=== PATIENT | female | born 1990 | race Caucasian/White ===

== ENCOUNTER 2018-09-04 18:00 | Emergency (ER) | payer MEDICAID, OTHER ==
[~2018-09-04] VITALS: Ht 165.1 cm; Wt 95.5 kg
[~2018-09-04 18:00] MED LIST: CARI350T PO; CLIN150C8 PO; GUAI600T45 PO; HYDR-4383 PO; NITR100C11 PO; ONDA4TAB6 PO; POTA10TA15 PO; SACC250C PO
[2018-09-04 18:10] VITALS: BP 131/87
[2018-09-04] MEDS ORDERED: prednisone 10mg tablet PO SCH (19:50)
[2018-09-04] MEDS ORDERED: predniSONE 20 mg tablet PO ONE (19:50)
[2018-09-04] MEDS ORDERED: PRED20TA PO (19:57)
== END 2018-09-04 20:06 | disposition home or self-care (01) ==
LOC: ER 18:01
DX: T78.40XA Allergy, unspecified, initial encounter (principal); L50.9 Urticaria, unspecified; R06.00 Dyspnea, unspecified; G89.29 Other chronic pain; Z86.14 Personal history of Methicillin resistant Staphylococcus aureus infection; Z98.51 Tubal ligation status; Z88.0 Allergy status to penicillin; Z88.2 Allergy status to sulfonamides; Z88.8 Allergy status to other drugs, medicaments and biological substances; Z88.5 Allergy status to narcotic agent; Z79.899 Other long term (current) drug therapy; X58.XXXA Exposure to other specified factors, initial encounter
CPT/HCPCS: 99283; J7512

== ENCOUNTER 2018-12-27 12:15 | Emergency (ER) | payer OTHER, MEDICAID ==
[~2018-12-27] VITALS: Ht 165.1 cm; Wt 86.4 kg
[2018-12-27 12:21] VITALS: BP 134/85
[2018-12-27] MEDS ORDERED: ketorolac trometh inj. 60 MG/2 ML VIAL IM ONE (12:50)
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
== END 2018-12-27 14:38 | disposition home or self-care (01) ==
LOC: ER 12:15
DX: S80.212A Abrasion, left knee, initial encounter (principal); S80.211A Abrasion, right knee, initial encounter; M25.512 Pain in left shoulder; M54.2 Cervicalgia; F32.9 Major depressive disorder, single episode, unspecified; G89.29 Other chronic pain; Z88.0 Allergy status to penicillin; Z88.5 Allergy status to narcotic agent; Z79.2 Long term (current) use of antibiotics; Z79.899 Other long term (current) drug therapy; Z86.14 Personal history of Methicillin resistant Staphylococcus aureus infection; Z98.61 Coronary angioplasty status; X58.XXXA Exposure to other specified factors, initial encounter; Y93.89 Activity, other specified; Y92.89 Other specified places as the place of occurrence of the external cause; Y99.8 Other external cause status
CPT/HCPCS: 72125; 96372; 99284; J1885

== ENCOUNTER 2019-01-02 01:55 | Emergency (ER) | payer OTHER, MEDICAID ==
[~2019-01-02] VITALS: Ht 165.1 cm; Wt 84.8 kg
[2019-01-02] MEDS ORDERED: ondansetron/PF 4mg/2ml inj IV ONE (02:05)
[2019-01-02 02:31] LABS: CLARITY,URINE CLEAR (Clear); COLOR,URINE YELLOW (Yellow); GLUCOSE, URINE NEGATIVE (Neg); KETONES,URINE NEGATIVE (Neg); LEUKOCYTE ESTERASE ,URINE NEGATIVE (Neg); NITRITES, URINE NEGATIVE (Neg); OCCULT BLOOD,URINE NEGATIVE (Neg); PH,URINE 6.5 (4.8-8.0); PROTEIN,URINE NEGATIVE (Neg)
[2019-01-02 02:32] LABS: URINE HCG NEGATIVE (NEG)
[2019-01-02 02:37] LABS: UA COLLECTION TYPE CLN CATCH MIDSTREAM
[2019-01-02 02:40] LABS: BASOPHILS # (AUTO) 0.1 X10'3 (0-0.2); BASOPHILS % (AUTO) 0.8 % (0-1); EOSINOPHILS # (AUTO) 0.3 X10'3 (0-0.9); EOSINOPHILS % (AUTO) 2.7 % (0-6); HEMATOCRIT 38.3 % (35.0-45.0); HEMOGLOBIN 13.1 g/dl (12.0-16.0); LYMPHOCYTES # (AUTO) 2.6 X10'3 (1.1-4.8); MEAN CORPUSCULAR HEMOGLOBIN 29.1 PG (27.0-31.0); MEAN CORPUSCULAR HGB CONC 34.3 g/dL (33.0-36.5); MEAN CORPUSCULAR VOLUME 84.9 FL (78-98); MEAN PLATELET VOLUME 7.9 FL (7.4-10.4); MONOCYTES # (AUTO) 0.6 X10'3 (0-0.9); MONOCYTES % (AUTO) 6.4 % (2-12); NEUTROPHILS # (AUTO) 6.2 X10'3 (1.8-7.7); NEUTROPHILS % (AUTO) 63.1 % (42-75); PLATELET COUNT 320 X10'3 (140-440); RED BLOOD COUNT 4.51 X10'6 (4.20-5.60); RED CELL DISTRIBUTION WIDTH 12.6 % (11.5-14.5); WHITE BLOOD COUNT 9.8 X10'3 (4.5-11.0)
[2019-01-02 02:53] LABS: ALANINE AMINOTRANSFERASE 24 U/L (12-78); ALBUMIN 3.9 G/DL (3.4-5.0); ALKALINE PHOSPHATASE 20 IU/L (46-116); ANION GAP 12 (8-16); ASPARTATE AMINO TRANSFERASE 13 U/L (10-37); BILIRUBIN,TOTAL 0.2 MG/DL (0.1-1.0); BLOOD UREA NITROGEN 15 MG/DL (7-18); BUN/CREATININE RATIO 16.3 (6.6-38.0); CALCIUM 9.1 MG/DL (8.5-10.1); CHLORIDE 106 MMOL/L (99-107); CREATININE 0.92 MG/DL (0.40-0.90); GLUCOSE 114 MG/DL (70-104); LIPASE 253 U/L (73-393); POTASSIUM 3.6 MMOL/L (3.5-5.1); SODIUM 141 MMOL/L (135-145); TOTAL CARBON DIOXIDE 22.6 MMOL/L (24-32); TOTAL PROTEIN 7.7 G/DL (6.4-8.2); eGFR 72 ML/MIN
[2019-01-02] MEDS ORDERED: normal saline 1000ml 1,000 ML IV ONE (02:55)
[2019-01-02 04:06] VITALS: BP 144/78
== END 2019-01-02 04:11 | disposition home or self-care (01) ==
LOC: ER 01:56
DX: F07.81 Postconcussional syndrome (principal); M25.512 Pain in left shoulder; M25.561 Pain in right knee; G89.29 Other chronic pain; F32.9 Major depressive disorder, single episode, unspecified; Z86.14 Personal history of Methicillin resistant Staphylococcus aureus infection; Z98.51 Tubal ligation status; Z88.0 Allergy status to penicillin; Z88.2 Allergy status to sulfonamides; Z88.6 Allergy status to analgesic agent; Z88.1 Allergy status to other antibiotic agents; Z88.5 Allergy status to narcotic agent; Z79.2 Long term (current) use of antibiotics; Z79.899 Other long term (current) drug therapy
CPT/HCPCS: 36415; 70450; 73030; 80053; 81003; 81025; 83690; 85025; 96361; 96374; 99284; J2405; J7030

== ENCOUNTER 2019-04-05 15:53 | Emergency (ER) | payer OTHER, MEDICAID ==
[~2019-04-05] VITALS: Ht 165.1 cm; Wt 82.4 kg
[2019-04-05 16:31] LABS: BASOPHILS # (AUTO) 0.1 X10'3 (0-0.2); BASOPHILS % (AUTO) 0.5 % (0-1); EOSINOPHILS % (AUTO) 0.1 % (0-6); HEMATOCRIT 36.2 % (35.0-45.0); HEMOGLOBIN 12.2 g/dl (12.0-16.0); LYMPHOCYTES # (AUTO) 4.4 X10'3 (1.1-4.8); LYMPHOCYTES % (AUTO) 23.3 % (21-51); MEAN CORPUSCULAR HEMOGLOBIN 29.1 PG (27.0-31.0); MEAN CORPUSCULAR HGB CONC 33.6 g/dL (33.0-36.5); MEAN CORPUSCULAR VOLUME 86.8 FL (78-98); MEAN PLATELET VOLUME 7.4 FL (7.4-10.4); MONOCYTES # (AUTO) 1.5 X10'3 (0-0.9); MONOCYTES % (AUTO) 7.7 % (2-12); NEUTROPHILS % (AUTO) 68.4 % (42-75); PLATELET COUNT 325 X10'3 (140-440); RED BLOOD COUNT 4.17 X10'6 (4.20-5.60)
[2019-04-05 16:46] LABS: ALANINE AMINOTRANSFERASE 19 U/L (12-78); ALBUMIN 3.9 G/DL (3.4-5.0); ALBUMIN/GLOBULIN RATIO 0.9 (1.1-1.5); ALKALINE PHOSPHATASE 24 IU/L (46-116); ANION GAP 11 (8-16); ASPARTATE AMINO TRANSFERASE 8 U/L (10-37); BILIRUBIN,TOTAL 0.3 MG/DL (0.1-1.0); BLOOD UREA NITROGEN 11 MG/DL (7-18); BUN/CREATININE RATIO 13.4 (6.6-38.0); CALCIUM 9.4 MG/DL (8.5-10.1); CHLORIDE 106 MMOL/L (99-107); CREATININE 0.82 MG/DL (0.40-0.90); GLUCOSE 104 MG/DL (70-104); POTASSIUM 3.4 MMOL/L (3.5-5.1); SODIUM 140 MMOL/L (135-145); TOTAL CARBON DIOXIDE 22.9 MMOL/L (24-32); TOTAL PROTEIN 8.1 G/DL (6.4-8.2); eGFR 82 ML/MIN
[2019-04-05] MEDS ORDERED: normal saline 1000ML IV soln IV ONE (17:35)
[2019-04-05] MEDS ORDERED: CefTRIAXone 2gm/D5W 50ml 50 ML IV ONE (17:35)
[2019-04-05] MEDS ORDERED: vancomycin/NS 1 GM ADD-VANTAGE 250 ML IV ONE (17:55)
[2019-04-05] MEDS ORDERED: dexamethasone sod phosphate 10mg/ml inj IV STA (18:38)
[2019-04-05] MEDS ORDERED: fentaNYL/PF 50MCG/1 ML 2ML syringe IV ONE (18:40)
[2019-04-05] MEDS ORDERED: diazepam inj 5 MG/ML inj. IV ONE (19:45)
[2019-04-05] MEDS ORDERED: OXYC-145 PO (20:04)
[2019-04-05] MEDS ORDERED: ketorolac trometh. 30mg/ml inj. IV ONE (20:10)
[2019-04-05 22:08] VITALS: BP 128/82
== END 2019-04-05 22:08 | disposition home or self-care (01) ==
LOC: ER 15:53
DX: G89.18 Other acute postprocedural pain (principal); R42 Dizziness and giddiness; M54.2 Cervicalgia; R51 Headache; R50.9 Fever, unspecified; H53.149 Visual discomfort, unspecified; G89.29 Other chronic pain; F32.9 Major depressive disorder, single episode, unspecified; Z88.0 Allergy status to penicillin; Z88.2 Allergy status to sulfonamides; Z88.6 Allergy status to analgesic agent; Z98.890 Other specified postprocedural states; Z86.14 Personal history of Methicillin resistant Staphylococcus aureus infection; Z98.51 Tubal ligation status
CPT/HCPCS: 36415; 70450; 80053; 83605; 84145; 85025; 87040; 96365; 96367; 96375; 99285; J0696; J1100; J1885; J3010; J3360; J3370; J7030

== ENCOUNTER 2019-04-17 13:24 | Emergency (ER) | payer OTHER, MEDICAID ==
[~2019-04-17] VITALS: Ht 165.1 cm; Wt 81.0 kg
[~2019-04-17 13:24] MED LIST changes: +OXYC-145 PO
[2019-04-17 13:43] VITALS: BP 127/77
[2019-04-17] MEDS ORDERED: HYDR-4353 PO (14:24)
[2019-04-17] MEDS ORDERED: OXYC-145 PO (14:27)
[2019-04-17] MEDS ORDERED: oxyCODONE/APAP 5-325mg tablet PO ONE (14:30)
[2019-04-17 14:44] LABS: BASOPHILS # (AUTO) 0.1 X10'3 (0-0.2); BASOPHILS % (AUTO) 0.6 % (0-1); EOSINOPHILS # (AUTO) 0.2 X10'3 (0-0.9); EOSINOPHILS % (AUTO) 1.6 % (0-6); HEMATOCRIT 36.2 % (35.0-45.0); HEMOGLOBIN 12.6 g/dl (12.0-16.0); LYMPHOCYTES # (AUTO) 2.3 X10'3 (1.1-4.8); LYMPHOCYTES % (AUTO) 22.1 % (21-51); MEAN CORPUSCULAR HEMOGLOBIN 29.9 PG (27.0-31.0); MEAN CORPUSCULAR HGB CONC 34.7 g/dL (33.0-36.5); MEAN CORPUSCULAR VOLUME 86.1 FL (78-98); MEAN PLATELET VOLUME 6.6 FL (7.4-10.4); MONOCYTES # (AUTO) 0.7 X10'3 (0-0.9); MONOCYTES % (AUTO) 6.6 % (2-12); NEUTROPHILS # (AUTO) 7.2 X10'3 (1.8-7.7); NEUTROPHILS % (AUTO) 69.1 % (42-75); PLATELET COUNT 354 X10'3 (140-440); WHITE BLOOD COUNT 10.5 X10'3 (4.5-11.0)
[2019-04-17 14:55] LABS: ALBUMIN 3.5 G/DL (3.4-5.0); ANION GAP 9 (8-16); BLOOD UREA NITROGEN 11 MG/DL (7-18); BUN/CREATININE RATIO 13.4 (6.6-38.0); CALCIUM 9.2 MG/DL (8.5-10.1); CHLORIDE 104 MMOL/L (99-107); CREATININE 0.82 MG/DL (0.40-0.90); GLUCOSE 101 MG/DL (70-104); POTASSIUM 3.7 MMOL/L (3.5-5.1); SODIUM 138 MMOL/L (135-145); TOTAL CARBON DIOXIDE 24.6 MMOL/L (24-32); eGFR 82 ML/MIN
== END 2019-04-17 15:12 | disposition home or self-care (01) ==
LOC: ER 13:25
DX: H65.92 Unspecified nonsuppurative otitis media, left ear (principal); G89.29 Other chronic pain; F32.9 Major depressive disorder, single episode, unspecified; Z98.890 Other specified postprocedural states; Z88.5 Allergy status to narcotic agent; Z88.0 Allergy status to penicillin; Z88.2 Allergy status to sulfonamides; Z79.2 Long term (current) use of antibiotics; Z79.899 Other long term (current) drug therapy; Z88.1 Allergy status to other antibiotic agents
CPT/HCPCS: 36415; 80048; 85025; 99284

== ENCOUNTER 2019-07-03 14:22 | Emergency (ER) | payer OTHER, MEDICAID ==
[~2019-07-03] VITALS: Ht 165.1 cm; Wt 86.4 kg
[~2019-07-03 14:22] MED LIST changes: -HYDR-4383 PO
[2019-07-03 14:31] VITALS: BP 121/88
[2019-07-03] MEDS ORDERED: DOXY100C2 PO (15:35)
== END 2019-07-03 15:54 | disposition home or self-care (01) ==
LOC: ER 14:22
DX: L73.2 Hidradenitis suppurativa (principal); G89.29 Other chronic pain; F32.9 Major depressive disorder, single episode, unspecified; Z86.14 Personal history of Methicillin resistant Staphylococcus aureus infection; Z88.0 Allergy status to penicillin; Z88.2 Allergy status to sulfonamides; Z88.6 Allergy status to analgesic agent; Z88.5 Allergy status to narcotic agent; Z79.2 Long term (current) use of antibiotics; Z79.899 Other long term (current) drug therapy
CPT/HCPCS: 99284

== ENCOUNTER 2019-11-05 08:54 | Emergency (ER) | payer OTHER, MEDICAID ==
[~2019-11-05] VITALS: Ht 165.1 cm; Wt 86.4 kg
[2019-11-05] MEDS ORDERED: LIDOcaine 1% W/epiNEPHrine 1:200,000 10ml vial IJ ONE (09:20)
[2019-11-05] MEDS ORDERED: DOXY-1 PO (09:54)
[2019-11-05 10:02] VITALS: BP 116/75
== END 2019-11-05 10:07 | disposition home or self-care (01) ==
LOC: ER 08:55
DX: L02.31 Cutaneous abscess of buttock (principal); G89.29 Other chronic pain; F32.9 Major depressive disorder, single episode, unspecified; F12.90 Cannabis use, unspecified, uncomplicated; Z86.14 Personal history of Methicillin resistant Staphylococcus aureus infection; Z98.51 Tubal ligation status; Z88.0 Allergy status to penicillin; Z88.2 Allergy status to sulfonamides; Z88.5 Allergy status to narcotic agent; Z79.899 Other long term (current) drug therapy
CPT/HCPCS: 10060; 99283

== ENCOUNTER 2019-11-15 07:46 | Emergency (ER) | payer OTHER, MEDICAID ==
[~2019-11-15] VITALS: Ht 165.1 cm; Wt 89.6 kg
[~2019-11-15 07:46] MED LIST changes: +DOXY-1 PO
[2019-11-15] MEDS ORDERED: fluconazole 150mg tablet PO ONE (08:00)
[2019-11-15 08:20] VITALS: BP 146/93
== END 2019-11-15 08:21 | disposition home or self-care (01) ==
LOC: ER 07:46
DX: B37.9 Candidiasis, unspecified (principal); L02.31 Cutaneous abscess of buttock; G89.29 Other chronic pain; F12.90 Cannabis use, unspecified, uncomplicated; F32.9 Major depressive disorder, single episode, unspecified; Z86.14 Personal history of Methicillin resistant Staphylococcus aureus infection; Z98.51 Tubal ligation status; Z48.00 Encounter for change or removal of nonsurgical wound dressing; Z88.0 Allergy status to penicillin; Z88.5 Allergy status to narcotic agent; Z88.2 Allergy status to sulfonamides; Z79.2 Long term (current) use of antibiotics; Z79.899 Other long term (current) drug therapy
CPT/HCPCS: 99283

== ENCOUNTER 2020-09-02 11:07 | Emergency (ER) | payer OTHER, MEDICAID ==
[~2020-09-02] VITALS: Ht 165.1 cm; Wt 81.8 kg
[~2020-09-02 11:07] MED LIST changes: -DOXY-1 PO
[2020-09-02 12:17] LABS: BASOPHILS # (AUTO) 0.1 X10'3 (0-0.2); BASOPHILS % (AUTO) 0.6 % (0-1); EOSINOPHILS # (AUTO) 0.1 X10'3 (0-0.9); EOSINOPHILS % (AUTO) 1.2 % (0-6); HEMATOCRIT 38.7 % (35.0-45.0); HEMOGLOBIN 12.9 g/dl (12.0-16.0); LYMPHOCYTES # (AUTO) 2.7 X10'3 (1.1-4.8); LYMPHOCYTES % (AUTO) 30.2 % (21-51); MEAN CORPUSCULAR HEMOGLOBIN 28.7 PG (27.0-31.0); MEAN CORPUSCULAR HGB CONC 33.3 g/dL (33.0-36.5); MEAN CORPUSCULAR VOLUME 86.1 FL (78-98); MONOCYTES # (AUTO) 0.5 X10'3 (0-0.9); MONOCYTES % (AUTO) 5.7 % (2-12); NEUTROPHILS # (AUTO) 5.5 X10'3 (1.8-7.7); NEUTROPHILS % (AUTO) 62.3 % (42-75); PLATELET COUNT 365 X10'3 (140-440); RED CELL DISTRIBUTION WIDTH 13.1 % (11.5-14.5); WHITE BLOOD COUNT 8.8 X10'3 (4.5-11.0)
[2020-09-02 12:24] LABS: CLARITY,URINE CLOUDY (Clear); COLOR,URINE STRAW (Yellow); GLUCOSE, URINE NEGATIVE (Neg); KETONES,URINE NEGATIVE (Neg); LEUKOCYTE ESTERASE ,URINE SMALL (Neg); NITRITES, URINE NEGATIVE (Neg); OCCULT BLOOD,URINE TRACE-INTACT (Neg); PH,URINE 5.5 (4.8-8.0); PROTEIN,URINE NEGATIVE (Neg); UROBILINOGEN,URINE 0.2 E.U/dL (0.2-1.0)
[2020-09-02 12:27] LABS: UA COLLECTION TYPE CLN CATCH MIDSTREAM
[2020-09-02 12:31] LABS: ALANINE AMINOTRANSFERASE 19 U/L (12-78); ALBUMIN 3.8 G/DL (3.4-5.0); ALKALINE PHOSPHATASE 22 IU/L (46-116); ANION GAP 14 (8-16); ASPARTATE AMINO TRANSFERASE 10 U/L (10-37); BILIRUBIN,TOTAL 0.2 MG/DL (0.1-1.0); BLOOD UREA NITROGEN 10 MG/DL (7-18); BUN/CREATININE RATIO 11.6 (6.6-38.0); CHLORIDE 108 MMOL/L (99-107); CREATININE 0.86 MG/DL (0.40-0.90); GLUCOSE 97 MG/DL (70-104); POTASSIUM 3.7 MMOL/L (3.5-5.1); SODIUM 145 MMOL/L (135-145); TOTAL CARBON DIOXIDE 23.4 MMOL/L (24-32); TOTAL PROTEIN 7.8 G/DL (6.4-8.2); eGFR 76 ML/MIN
[2020-09-02 12:32] LABS: BACTERIA,URINE 2+ /HPF (Neg); SQUAMOUS EPITHELIAL CELL,UR MANY /LPF (FEW)
[2020-09-02 12:33] LABS: MUCUS STRANDS FEW /LPF (Neg); WBC CLUMPS,URINE FEW /HPF (NEGATIVE)
[2020-09-02 13:00] LABS: CLARITY,URINE CLOUDY (Clear); COLOR,URINE STRAW (Yellow); GLUCOSE, URINE NEGATIVE (Neg); KETONES,URINE NEGATIVE (Neg); LEUKOCYTE ESTERASE ,URINE SMALL (Neg); NITRITES, URINE NEGATIVE (Neg); OCCULT BLOOD,URINE TRACE-INTACT (Neg); PROTEIN,URINE NEGATIVE (Neg); UROBILINOGEN,URINE 0.2 E.U/dL (0.2-1.0)
[2020-09-02 13:10] LABS: UA COLLECTION TYPE CLN CATCH MIDSTREAM
[2020-09-02 13:11] LABS: BACTERIA,URINE 2+ /HPF (Neg); RBC,URINE 0-2 /HPF (0-2); SQUAMOUS EPITHELIAL CELL,UR MANY /LPF (FEW)
[2020-09-02] MEDS ORDERED: CIPR-259 PO (13:16)
[2020-09-02 13:25] VITALS: BP 109/74
[2020-09-02 15:30] LABS: URINE HCG NEGATIVE (NEG)
== END 2020-09-02 13:25 | disposition home or self-care (01) ==
LOC: ER 11:07
DX: N39.0 Urinary tract infection, site not specified (principal); R53.83 Other fatigue; R10.84 Generalized abdominal pain; R30.9 Painful micturition, unspecified; G89.29 Other chronic pain; F32.9 Major depressive disorder, single episode, unspecified; F12.90 Cannabis use, unspecified, uncomplicated; Z86.14 Personal history of Methicillin resistant Staphylococcus aureus infection; Z98.51 Tubal ligation status; Z98.890 Other specified postprocedural states; Z88.0 Allergy status to penicillin; Z88.2 Allergy status to sulfonamides; Z88.5 Allergy status to narcotic agent; Z88.1 Allergy status to other antibiotic agents; Z88.8 Allergy status to other drugs, medicaments and biological substances; Z79.2 Long term (current) use of antibiotics; Z79.899 Other long term (current) drug therapy
CPT/HCPCS: 36415; 80053; 81001; 81025; 85025; 99283

== ENCOUNTER 2020-12-27 09:51 | Emergency (ER) | payer OTHER, MEDICAID ==
[~2020-12-27] VITALS: Ht 162.6 cm; Wt 79.0 kg
[2020-12-27] MEDS ORDERED: ketorolac trometh. 30mg/ml inj. IV ONE (11:45)
[2020-12-27] MEDS ORDERED: metoclopramide 5 mg/ml inj IV ONE (11:45)
[2020-12-27] MEDS ORDERED: normal saline 1000ML IV soln IVB ONE (11:45)
[2020-12-27] MEDS ORDERED: diphenhydrAMINE 50 mg/ml inj IV ONE (11:45)
[2020-12-27 13:23] VITALS: BP 106/52
== END 2020-12-27 13:25 | disposition home or self-care (01) ==
LOC: ER 09:51
DX: R51.9 Headache, unspecified (principal); R11.2 Nausea with vomiting, unspecified; E86.0 Dehydration; G89.29 Other chronic pain; F32.9 Major depressive disorder, single episode, unspecified; F12.90 Cannabis use, unspecified, uncomplicated; Z86.14 Personal history of Methicillin resistant Staphylococcus aureus infection; Z98.51 Tubal ligation status; Z98.890 Other specified postprocedural states; Z88.0 Allergy status to penicillin; Z88.8 Allergy status to other drugs, medicaments and biological substances; Z88.1 Allergy status to other antibiotic agents; Z88.5 Allergy status to narcotic agent; Z79.2 Long term (current) use of antibiotics; Z79.899 Other long term (current) drug therapy
CPT/HCPCS: 96361; 96374; 96375; 99284; J1200; J1885; J2765; J7030

== ENCOUNTER 2021-05-16 09:26 | Emergency (ER) | payer OTHER, MEDICAID ==
[~2021-05-16] VITALS: Ht 165.1 cm; Wt 75.8 kg
[2021-05-16 09:58] VITALS: BP 136/78
[2021-05-16] MEDS ORDERED: VALA10002 PO (10:06)
== END 2021-05-16 12:58 | disposition home or self-care (01) ==
LOC: ER 09:27
DX: B99.8 Other infectious disease (principal); T43.215A Adverse effect of selective serotonin and norepinephrine reuptake inhibitors, initial encounter; T43.595A Adverse effect of other antipsychotics and neuroleptics, initial encounter; G89.29 Other chronic pain; F32.9 Major depressive disorder, single episode, unspecified; F12.90 Cannabis use, unspecified, uncomplicated; Z86.14 Personal history of Methicillin resistant Staphylococcus aureus infection; Z98.51 Tubal ligation status; Z98.890 Other specified postprocedural states; Z88.0 Allergy status to penicillin; Z88.2 Allergy status to sulfonamides; Z88.1 Allergy status to other antibiotic agents; Z88.8 Allergy status to other drugs, medicaments and biological substances; Z79.2 Long term (current) use of antibiotics; Z79.899 Other long term (current) drug therapy; Y92.89 Other specified places as the place of occurrence of the external cause
CPT/HCPCS: 99283

== ENCOUNTER 2021-08-08 09:27 | Emergency (ER) | payer OTHER, MEDICAID ==
[~2021-08-08] VITALS: Ht 165.1 cm; Wt 74.1 kg
[~2021-08-08 09:27] MED LIST changes: +VALA10002 PO
[2021-08-08 09:47] VITALS: BP 156/80
[2021-08-08] MEDS ORDERED: ONDA-103 PO (10:44)
[2021-08-08] MEDS ORDERED: ondansetron 4mg rapidly disintigrating tab PO ONE (10:45)
[2021-08-08 11:34] LABS: BASOPHILS % (AUTO) 0.4 % (0-1); EOSINOPHILS % (AUTO) 0.1 % (0-6); HEMATOCRIT 38.9 % (35.0-45.0); HEMOGLOBIN 13.5 g/dl (12.0-16.0); LYMPHOCYTES # (AUTO) 1.1 X10'3 (1.1-4.8); LYMPHOCYTES % (AUTO) 25.9 % (21-51); MEAN CORPUSCULAR HEMOGLOBIN 29.3 PG (27.0-31.0); MEAN CORPUSCULAR HGB CONC 34.7 g/dL (33.0-36.5); MEAN CORPUSCULAR VOLUME 84.6 FL (78-98); MEAN PLATELET VOLUME 7.7 FL (7.4-10.4); MONOCYTES # (AUTO) 0.4 X10'3 (0-0.9); MONOCYTES % (AUTO) 9.5 % (2-12); NEUTROPHILS # (AUTO) 2.7 X10'3 (1.8-7.7); NEUTROPHILS % (AUTO) 64.1 % (42-75); PLATELET COUNT 238 X10'3 (140-440); RED CELL DISTRIBUTION WIDTH 12.6 % (11.5-14.5); WHITE BLOOD COUNT 4.2 X10'3 (4.5-11.0)
[2021-08-08 11:43] LABS: ALANINE AMINOTRANSFERASE 31 U/L (12-78); ALBUMIN 4.4 G/DL (3.4-5.0); ALBUMIN/GLOBULIN RATIO 1.2 (1.1-1.5); ALKALINE PHOSPHATASE 16 IU/L (46-116); ANION GAP 17 (8-16); ASPARTATE AMINO TRANSFERASE 19 U/L (10-37); BILIRUBIN,TOTAL 0.3 MG/DL (0.1-1.0); BLOOD UREA NITROGEN 12 MG/DL (7-18); CALCIUM 8.9 MG/DL (8.5-10.1); CHLORIDE 104 MMOL/L (99-107); CREATININE 0.75 MG/DL (0.40-0.90); GLUCOSE 92 MG/DL (70-104); POTASSIUM 3.5 MMOL/L (3.5-5.1); SODIUM 141 MMOL/L (135-145); TOTAL CARBON DIOXIDE 20.2 MMOL/L (24-32); eGFR 90 ML/MIN
[2021-08-08 12:25] LABS: CLARITY,URINE CLEAR (Clear); COLOR,URINE YELLOW (Yellow); GLUCOSE, URINE NEGATIVE (Neg); KETONES,URINE >=80 mg/dl (Neg); LEUKOCYTE ESTERASE ,URINE NEGATIVE (Neg); NITRITES, URINE NEGATIVE (Neg); OCCULT BLOOD,URINE NEGATIVE (Neg); PROTEIN,URINE NEGATIVE (Neg); UROBILINOGEN,URINE 0.2 E.U/dL (0.2-1.0)
[2021-08-08 12:30] LABS: UA COLLECTION TYPE CLN CATCH MIDSTREAM
== END 2021-08-08 13:15 | disposition home or self-care (01) ==
LOC: ER 09:27
DX: U07.1 COVID-19 (principal); R19.7 Diarrhea, unspecified; R30.0 Dysuria; G89.29 Other chronic pain; F12.90 Cannabis use, unspecified, uncomplicated; Z86.14 Personal history of Methicillin resistant Staphylococcus aureus infection; Z90.710 Acquired absence of both cervix and uterus; Z98.51 Tubal ligation status; Z98.890 Other specified postprocedural states; Z88.0 Allergy status to penicillin; Z88.8 Allergy status to other drugs, medicaments and biological substances; Z88.1 Allergy status to other antibiotic agents; Z88.2 Allergy status to sulfonamides; Z88.5 Allergy status to narcotic agent; Z79.2 Long term (current) use of antibiotics; Z79.899 Other long term (current) drug therapy
CPT/HCPCS: 36415; 80053; 81003; 85025; 99283

== ENCOUNTER 2021-10-29 11:32 | Emergency (ER) | payer OTHER, MEDICAID ==
[~2021-10-29] VITALS: Ht 165.1 cm; Wt 27.3 kg
[~2021-10-29 11:32] MED LIST changes: +ONDA-103 PO
[2021-10-29 11:58] LABS: CLARITY,URINE SLIGHTLY CLOUDY (Clear); COLOR,URINE YELLOW (Yellow); GLUCOSE, URINE NEGATIVE (Neg); KETONES,URINE >=80 mg/dl (Neg); LEUKOCYTE ESTERASE ,URINE NEGATIVE (Neg); NITRITES, URINE NEGATIVE (Neg); OCCULT BLOOD,URINE TRACE-INTACT (Neg); PROTEIN,URINE NEGATIVE (Neg); UROBILINOGEN,URINE 0.2 E.U/dL (0.2-1.0)
[2021-10-29 12:01] LABS: EOSINOPHILS # (AUTO) 0.1 X10'3 (0-0.9)
[2021-10-29 12:02] LABS: BASOPHILS # (AUTO) 0.1 X10'3 (0-0.2); BASOPHILS % (AUTO) 0.5 % (0-1); EOSINOPHILS % (AUTO) 0.7 % (0-6); HEMOGLOBIN 13.1 g/dl (12.0-16.0); LYMPHOCYTES # (AUTO) 2.6 X10'3 (1.1-4.8); LYMPHOCYTES % (AUTO) 26.2 % (21-51); MEAN CORPUSCULAR HEMOGLOBIN 28.6 PG (27.0-31.0); MEAN CORPUSCULAR HGB CONC 33.7 g/dL (33.0-36.5); MEAN PLATELET VOLUME 7.6 FL (7.4-10.4); MONOCYTES # (AUTO) 0.6 X10'3 (0-0.9); MONOCYTES % (AUTO) 6.1 % (2-12); NEUTROPHILS # (AUTO) 6.6 X10'3 (1.8-7.7); NEUTROPHILS % (AUTO) 66.5 % (42-75); PLATELET COUNT 315 X10'3 (140-440); RED BLOOD COUNT 4.59 X10'6 (4.20-5.60); RED CELL DISTRIBUTION WIDTH 12.9 % (11.5-14.5); WHITE BLOOD COUNT 9.9 X10'3 (4.5-11.0)
[2021-10-29 12:12] LABS: ALANINE AMINOTRANSFERASE 15 U/L (12-78); ALBUMIN 4.8 G/DL (3.4-5.0); ALBUMIN/GLOBULIN RATIO 1.4 (1.1-1.5); ALKALINE PHOSPHATASE 17 IU/L (46-116); ANION GAP 12 (8-16); ASPARTATE AMINO TRANSFERASE 11 U/L (10-37); BILIRUBIN,TOTAL 0.5 MG/DL (0.1-1.0); BLOOD UREA NITROGEN 13 MG/DL (7-18); BUN/CREATININE RATIO 16.3 (6.6-38.0); CHLORIDE 105 MMOL/L (99-107); GLUCOSE 108 MG/DL (70-104); LIPASE 73 U/L (73-393); POTASSIUM 3.7 MMOL/L (3.5-5.1); SODIUM 138 MMOL/L (135-145); TOTAL CARBON DIOXIDE 20.8 MMOL/L (24-32); TOTAL PROTEIN 8.3 G/DL (6.4-8.2); eGFR 83 ML/MIN
[2021-10-29 12:21] LABS: UA COLLECTION TYPE CLN CATCH MIDSTREAM
[2021-10-29 12:28] LABS: WBC,URINE 0-4 /HPF (0-4)
[2021-10-29 12:29] LABS: BACTERIA,URINE FEW /HPF (Neg); RBC,URINE 0-2 /HPF (0-2)
[2021-10-29 12:33] LABS: SQUAMOUS EPITHELIAL CELL,UR MANY /LPF (FEW)
[2021-10-29] MEDS ORDERED: normal saline 1000ML IV soln IVB ONE (12:35)
[2021-10-29] MEDS ORDERED: ondansetron/PF 4mg/2ml inj IV ONE (12:35)
[2021-10-29] MEDS ORDERED: ketorolac trometh. 30mg/ml inj. IV ONE (12:35)
[2021-10-29] MEDS ORDERED: TRAM50TA2 PO (13:28)
[2021-10-29 13:47] VITALS: BP 110/82
== END 2021-10-29 13:49 | disposition home or self-care (01) ==
LOC: ER 11:32
DX: R10.84 Generalized abdominal pain (principal); R11.0 Nausea; K59.00 Constipation, unspecified; G89.29 Other chronic pain; F32.A Depression, unspecified; F12.90 Cannabis use, unspecified, uncomplicated; Z90.710 Acquired absence of both cervix and uterus; Z86.14 Personal history of Methicillin resistant Staphylococcus aureus infection; Z98.51 Tubal ligation status; Z98.890 Other specified postprocedural states; Z88.0 Allergy status to penicillin; Z88.2 Allergy status to sulfonamides; Z88.1 Allergy status to other antibiotic agents; Z88.8 Allergy status to other drugs, medicaments and biological substances; Z79.2 Long term (current) use of antibiotics; Z79.899 Other long term (current) drug therapy
CPT/HCPCS: 36415; 74176; 80053; 81001; 83690; 85025; 96361; 96374; 96375; 99284; J1885; J2405; J7030

== ENCOUNTER 2022-01-22 05:39 | Day surgery (SDC) | payer OTHER, MEDICAID ==
[2022-01-15 15:06] LABS: BASOPHILS # (AUTO) 0.1 X10'3 (0-0.2); BASOPHILS % (AUTO) 0.7 % (0-1); EOSINOPHILS # (AUTO) 0.7 X10'3 (0-0.9); EOSINOPHILS % (AUTO) 9.6 % (0-6); LYMPHOCYTES # (AUTO) 2.7 X10'3 (1.1-4.8); LYMPHOCYTES % (AUTO) 36.6 % (21-51); MEAN CORPUSCULAR HEMOGLOBIN 29.5 PG (27.0-31.0); MEAN CORPUSCULAR VOLUME 84.5 FL (78-98); MEAN PLATELET VOLUME 7.2 FL (7.4-10.4); MONOCYTES # (AUTO) 0.7 X10'3 (0-0.9); MONOCYTES % (AUTO) 8.9 % (2-12); NEUTROPHILS # (AUTO) 3.2 X10'3 (1.8-7.7); NEUTROPHILS % (AUTO) 44.2 % (42-75); PRE OP HEMATOCRIT 34.7 % (35.0-45.0); PRE OP HEMOGLOBIN 12.1 g/dL (12.0-16.0); PRE OP PLATELET COUNT 248 X10'3 (140-440); RED BLOOD COUNT 4.11 X10'6 (4.20-5.60); RED CELL DISTRIBUTION WIDTH 12.8 % (11.5-14.5)
[2022-01-15 15:07] LABS: CLARITY,URINE SLIGHTLY CLOUDY (Clear); COLOR,URINE YELLOW (Yellow); GLUCOSE, URINE NEGATIVE (Neg); KETONES,URINE NEGATIVE (Neg); LEUKOCYTE ESTERASE ,URINE NEGATIVE (Neg); NITRITES, URINE NEGATIVE (Neg); OCCULT BLOOD,URINE TRACE-INTACT (Neg); PROTEIN,URINE NEGATIVE (Neg); UROBILINOGEN,URINE 0.2 E.U/dL (0.2-1.0)
[2022-01-15 15:11] LABS: UA COLLECTION TYPE CLN CATCH MIDSTREAM
[2022-01-15 15:16] LABS: BACTERIA,URINE 2+ /HPF (Neg); MUCUS STRANDS FEW /LPF (Neg); SQUAMOUS EPITHELIAL CELL,UR MANY /LPF (FEW)
[2022-01-15 15:17] LABS: RBC,URINE 0-2 /HPF (0-2); WBC,URINE 0-4 /HPF (0-4)
[2022-01-15 15:37] LABS: ALBUMIN 4.2 G/DL (3.4-5.0); ALBUMIN/GLOBULIN RATIO 1.3 (1.1-1.5); ALKALINE PHOSPHATASE 16 IU/L (46-116); BLOOD UREA NITROGEN 7 MG/DL (7-18); BUN/CREATININE RATIO 7.7 (6.6-38.0); CALCIUM 8.7 MG/DL (8.5-10.1); CHLORIDE 108 MMOL/L (99-107); CREATININE 0.91 MG/DL (0.40-0.90); PRE OP ALT 20 U/L (30-65); PRE OP ANION GAP 8 (8-16); PRE OP AST 12 U/L (10-37); PRE OP BILIRUB, TOTAL 0.3 MG/DL (0.0-1.0); PRE OP GLUCOSE 101 MG/DL (70-104); PRE OP POTASSIUM 3.5 MMOL/L (3.4-5.1); PRE OP SODIUM 142 MMOL/L (135-145); TOTAL CARBON DIOXIDE 25.9 MMOL/L (24-32); TOTAL PROTEIN 7.5 G/DL (6.4-8.2); eGFR 71 ML/MIN
[~2022-01-22] VITALS: Ht 165.1 cm; Wt 73.5 kg
[2022-01-22] VITALS (9 sets, daily range): BP systolic 96–135; BP diastolic 53–80
[~2022-01-22 05:39] MED LIST changes: +ALBU17AE26 PO; +BACL10TA PO; -CARI350T PO; +CETI10TA14 PO; -CLIN150C8 PO; +GALC120P SQ; -GUAI600T45 PO; -NITR100C11 PO; -ONDA-103 PO; -ONDA4TAB6 PO; -OXYC-145 PO; -POTA10TA15 PO; +PRAZ1CAP5 PO; -SACC250C PO; +TOP100T PO; +TRAZ-256 PO; -VALA10002 PO; +albuterol 2.5 MG/3 ML nebule NEB ONE; +clindamycin-Cleocin 900mg/D5W 50 ML IV ONE; +famotidine 20mg tablet PO ONE; +ringers solution, lacted 1,000 ML IV SCH
--- NOTE | 2022-01-22 06:35 | NUR ---
CALL PLACED TO PHARMACY D/T PT BEING ALLERGIC TO CLINDAMYCIN AND IT IS CURRENTLY ORDERED AND ON PT'S EMAR. PT ALSO HAS ALLERGY TO PCN'S AND SULFA. PHARMACY CALLED DR MITCHELL AND BOBBI WAS ORDERED. WILL SEND WITH PT TO OR
[2022-01-22] MEDS ORDERED: LIDOcaine 1% 30ml preserv. free vial ONE (06:40)
[2022-01-22] MEDS ORDERED: BUPIVAcaine/PF 2.5 mg/ml (0.25%) 30ml vial ONE (06:41)
[2022-01-22] MEDS ORDERED: bacitracin 15gm ointment TP ONE (06:49)
[2022-01-22] MEDS ORDERED: meperidine/PF 25mg/ml syringe IV PRN ×2 (07:05)
[2022-01-22] MEDS ORDERED: ringers solution, lacted 1,000 ML IV SCH (07:05)
[2022-01-22] MEDS ORDERED: labetalol 20mg/4ml (5mg/ml) syringe IV PRN (07:05)
[2022-01-22] MEDS ORDERED: fentaNYL/PF 50MCG/1 ML 2ML syringe IV PRN ×2 (07:05)
[2022-01-22] MEDS ORDERED: hydrALAZINE 20mg/ml inj. IV PRN (07:05)
[2022-01-22] MEDS ORDERED: ondansetron/PF 4mg/2ml inj IV PRN (07:05)
[2022-01-22] MEDS ORDERED: propofol inj 20 ML IV ONE ×2 (07:13→07:15)
[2022-01-22] MEDS ORDERED: LIDOcaine 2% (20mg/ml) 5ml vial ONE (07:15)
[2022-01-22] MEDS ORDERED: rocuronium 10mg/ml inj IV ONE (07:15)
[2022-01-22] MEDS ORDERED: glycopyrrolate 0.2mg/ml inj ONE (07:16)
[2022-01-22] MEDS ORDERED: neostigmine methylsulfate 1 MG/ML 10ml vial ONE (07:16)
[2022-01-22] MEDS ORDERED: ondansetron/PF 4mg/2ml inj ONE (07:16)
[2022-01-22] MEDS ORDERED: midazolam 1 mg/ML 2ml injection ONE (07:17)
[2022-01-22] MEDS ORDERED: acetaminophen 1,000mg/100ml IV 100 ML IV ONE (07:17)
[2022-01-22] MEDS ORDERED: fentaNYL/PF 50MCG/1 ML 2ML syringe ONE (07:17)
--- NOTE | 2022-01-22 08:24 | NUR ---
Received from OR via [facility], accompanied by Anesthesiologist and report given by FRACISCO Anesthesiologist. PATIENT A&OX4, DENIES PAIN, V/S WNL, SCD ON , PIV 20G RUE, DERMABONDED LAPS SITE X1 CLOSED CDI TO ABDOMEN. Addendum: 01/22/22 at 0838 by Jones Alvarado RN Amended: Links added.
[2022-01-22] MEDS ORDERED: oxyCODONE/APAP 5-325mg tablet PO PRN (08:25)
--- NOTE | 2022-01-22 09:24 | NUR ---
ALL DISCHARGE CRITERIA HAS BEEN MET. VSS, PAIN AT A TOLERABLE LEVEL, ABLE TO SAFELY AMBULATE AND TRANSFER SELF. IV TAKEN OUT WITHOUT ANY COMPLICATIONS. ALL DISCHARGE INSTRUCTIONS COVERED WITH PATIENT AND ALL QUESTIONS ANSWERED. PATIENT TAKEN OUT VIA WHEELCHAIR WITH ALL BELONGINGS TO PERSONAL VEHICLE WHERE FAMILY/FRIEND DROVE PATIENT HOME. Addendum: 01/22/22 at 0959 by Jones Alvarado RN Amended: Links added.
[2022-01-23] MEDS ORDERED: ceFAZolin inj. 2,000 MG in dextrose 5%-water 100 ML IV ONE (05:30)
== END 2022-01-22 09:24 | disposition home or self-care (01) ==
LOC: PAS 05:39
PROVIDERS: ATTEND Surgery
DX: K42.9 Umbilical hernia without obstruction or gangrene (principal); F12.90 Cannabis use, unspecified, uncomplicated; Z88.6 Allergy status to analgesic agent; Z88.2 Allergy status to sulfonamides; Z88.0 Allergy status to penicillin; G89.29 Other chronic pain; F32.9 Major depressive disorder, single episode, unspecified; F41.9 Anxiety disorder, unspecified; F43.10 Post-traumatic stress disorder, unspecified; Z83.3 Family history of diabetes mellitus; Z82.49 Family history of ischemic heart disease and other diseases of the circulatory system; Z79.899 Other long term (current) drug therapy; Z90.710 Acquired absence of both cervix and uterus; Z98.51 Tubal ligation status; Z98.890 Other specified postprocedural states; Z82.3 Family history of stroke; F41.8 Other specified anxiety disorders; Z87.440 Personal history of urinary (tract) infections
CPT/HCPCS: 36415; 49585; 80053; 81001; 82948; 85025; 87811; 94640; 94760; J0131; J2175; J2250; J2405; J2704; J2710; J3010; J3490; J7030; J7120; Z7506; Z7512; A4618; A7000; C1781

== ENCOUNTER 2022-02-17 11:05 | Emergency (ER) | payer OTHER, MEDICAID ==
[~2022-02-17] VITALS: Ht 165.1 cm; Wt 72.7 kg
[~2022-02-17 11:05] MED LIST changes: -albuterol 2.5 MG/3 ML nebule NEB ONE; -clindamycin-Cleocin 900mg/D5W 50 ML IV ONE; -famotidine 20mg tablet PO ONE; -ringers solution, lacted 1,000 ML IV SCH
[2022-02-17 11:08] VITALS: BP 148/81
[2022-02-17] MEDS ORDERED: dexamethasone sod phosphate 10mg/ml inj IM STA (11:54)
[2022-02-17] MEDS ORDERED: LIDO20SO16 PO (11:57)
== END 2022-02-17 12:12 | disposition home or self-care (01) ==
LOC: ER 11:05
DX: R07.0 Pain in throat (principal); J02.9 Acute pharyngitis, unspecified; R13.10 Dysphagia, unspecified; G89.29 Other chronic pain; F32.A Depression, unspecified; Z86.14 Personal history of Methicillin resistant Staphylococcus aureus infection; F12.10 Cannabis abuse, uncomplicated; Z88.5 Allergy status to narcotic agent; Z88.0 Allergy status to penicillin; Z88.2 Allergy status to sulfonamides; Z79.899 Other long term (current) drug therapy
CPT/HCPCS: 96372; 99283; J1100

== ENCOUNTER 2023-07-09 16:51 | Emergency (ER) | payer OTHER, MEDICAID ==
[~2023-07-09] VITALS: Ht 165.1 cm; Wt 93.9 kg
[~2023-07-09 16:51] MED LIST changes: +LIDO20SO16 PO
[2023-07-09 17:15] LABS: BASOPHILS # (AUTO) 0.1 X10'3 (0-0.2); BASOPHILS % (AUTO) 0.6 % (0-1); EOSINOPHILS # (AUTO) 0.6 X10'3 (0-0.9); EOSINOPHILS % (AUTO) 4.6 % (0-6); HEMATOCRIT 39.8 % (35.0-45.0); HEMOGLOBIN 13.2 g/dl (12.0-16.0); LYMPHOCYTES # (AUTO) 3.1 X10'3 (1.1-4.8); LYMPHOCYTES % (AUTO) 23.2 % (21-51); MEAN CORPUSCULAR HGB CONC 33.1 g/dL (33.0-36.5); MEAN CORPUSCULAR VOLUME 84.5 FL (78-98); MEAN PLATELET VOLUME 7.5 FL (7.4-10.4); MONOCYTES # (AUTO) 0.9 X10'3 (0-0.9); MONOCYTES % (AUTO) 6.5 % (2-12); NEUTROPHILS # (AUTO) 8.8 X10'3 (1.8-7.7); NEUTROPHILS % (AUTO) 65.1 % (42-75); PLATELET COUNT 345 X10'3 (140-440); RED BLOOD COUNT 4.71 X10'6 (4.20-5.60); RED CELL DISTRIBUTION WIDTH 12.9 % (11.5-14.5); WHITE BLOOD COUNT 13.5 X10'3 (4.5-11.0)
[2023-07-09 17:30] LABS: ALANINE AMINOTRANSFERASE 24 U/L (12-78); ALBUMIN 3.8 G/DL (3.4-5.0); ALBUMIN/GLOBULIN RATIO 0.9 (1.1-1.5); ALKALINE PHOSPHATASE 22 IU/L (46-116); ANION GAP 9 (8-16); ASPARTATE AMINO TRANSFERASE 17 U/L (10-37); BILIRUBIN,TOTAL 0.2 MG/DL (0.1-1.0); BLOOD UREA NITROGEN 11 MG/DL (7-18); BUN/CREATININE RATIO 11.6 (10.0-20.0); CALCIUM 8.6 MG/DL (8.5-10.1); CHLORIDE 105 MMOL/L (99-107); CREATININE 0.95 MG/DL (0.40-0.90); GLUCOSE 112 MG/DL (70-104); POTASSIUM 3.8 MMOL/L (3.5-5.1); SODIUM 141 MMOL/L (135-145); TOTAL CARBON DIOXIDE 27.2 MMOL/L (24-32); TOTAL PROTEIN 7.9 G/DL (6.4-8.2); eCRCL 75 ML/MIN; eGFR 67 ML/MIN
[2023-07-09 17:37] LABS: PRO BRAIN NATRIURETIC PEPTIDE 65 PG/ML (0-125)
[2023-07-09] MEDS: ondansetron 4mg rapidly disintigrating tab PO ONE (18:27)
[2023-07-09] MEDS: ketorolac trometh. 30mg/ml inj. IM ONE (18:29)
[2023-07-09 19:15] VITALS: BP 128/94; PULSE 65; RESP 20; TEMP 98.2; O2SAT 95
== END 2023-07-09 19:18 | disposition home or self-care (01) ==
LOC: ER 16:52
DX: R07.89 Other chest pain (principal); F12.90 Cannabis use, unspecified, uncomplicated; Z88.5 Allergy status to narcotic agent; Z88.0 Allergy status to penicillin; Z88.2 Allergy status to sulfonamides; Z88.1 Allergy status to other antibiotic agents; Z79.899 Other long term (current) drug therapy; Z90.710 Acquired absence of both cervix and uterus; Z98.51 Tubal ligation status
CPT/HCPCS: 36415; 71045; 80053; 83880; 84484; 85025; 93005; 96372; 99285; J1885

== ENCOUNTER 2023-08-26 12:40 | Emergency (ER) | payer OTHER, MEDICAID ==
[~2023-08-26] VITALS: Ht 162.6 cm; Wt 94.6 kg
[2023-08-26 12:43] VITALS: BP 133/81; PULSE 86; RESP 19; TEMP 98.3; O2SAT 97
[2023-08-26] MEDS ORDERED: NAPR-56 PO (12:49)
[2023-08-26] MEDS ORDERED: DOXY-225 PO (12:49)
[2023-08-26] MEDS ORDERED: ketorolac trometh inj. 60 MG/2 ML VIAL IM ONE (12:55)
[2023-08-26] MEDS: ketorolac tromethamine 15mg/ml inj. IM ONE (13:01)
== END 2023-08-26 13:20 | disposition home or self-care (01) ==
LOC: ER 12:41
DX: K04.7 Periapical abscess without sinus (principal); F12.90 Cannabis use, unspecified, uncomplicated; Z88.0 Allergy status to penicillin; Z88.8 Allergy status to other drugs, medicaments and biological substances; F32.9 Major depressive disorder, single episode, unspecified; Z90.710 Acquired absence of both cervix and uterus; Z98.51 Tubal ligation status
CPT/HCPCS: 96372; 99283; J1885

== ENCOUNTER 2024-08-09 20:09 | Emergency (ER) | payer OTHER, MEDICAID ==
[~2024-08-09] VITALS: Ht 162.6 cm; Wt 89.1 kg
[2024-08-09 20:15] VITALS: PULSE 94; TEMP 96.8; O2SAT 96
[2024-08-09 23:22] VITALS: RESP 16
[2024-08-09] MEDS: ketorolac trometh 30MG/ML vial 30 MG/ML VIAL IM STA (23:22)
== END 2024-08-09 23:23 | disposition home or self-care (01) ==
LOC: ER 20:10
DX: S93.401A Sprain of unspecified ligament of right ankle, initial encounter (principal); Z88.0 Allergy status to penicillin; Z88.1 Allergy status to other antibiotic agents; Z88.2 Allergy status to sulfonamides; Z88.5 Allergy status to narcotic agent; Z90.710 Acquired absence of both cervix and uterus; Z98.890 Other specified postprocedural states; F12.90 Cannabis use, unspecified, uncomplicated; Y93.89 Activity, other specified; X50.1XXA Overexertion from prolonged static or awkward postures, initial encounter; Y92.89 Other specified places as the place of occurrence of the external cause; Y99.8 Other external cause status
CPT/HCPCS: 73610; 73630; 96372; 99284; J1885; L4360

== ENCOUNTER 2024-11-15 13:00 | Outpatient (CLI) | payer MEDICAID, OTHER | END 2024-11-15 23:59 | disposition home or self-care (01) | LOC: MRI02 13:00 | PROVIDERS: ATTEND Podiatrist Foot & Ankle Surgery | DX: M25.571 Pain in right ankle and joints of right foot (principal); R26.2 Difficulty in walking, not elsewhere classified; E66.9 Obesity, unspecified | CPT/HCPCS: 73721 ==

== ENCOUNTER 2025-02-22 11:13 | Inpatient (IN) | payer OTHER, MEDICAID ==
[~2025-02-22] VITALS: Ht 162.6 cm; Wt 90.5 kg
--- NOTE | 2025-02-22 11:35 | Physician Documentation ---
History of Present Illness Chief Complaint: Abdominal Pain Stated Complaint: ABD PAIN Primary Medical Doctor: KIMMY FONSECA 34 years old female with history of ADHD, obesity presented to the ED due to abdominal pain. Patient was on Wegovy for a long time however she missed the dose for three weeks. Patient reported her abdominal pain started about three days ago when she restarted injecting the Wegovy. Reported abdominal pain on left upper and lower quadrant, associated with nausea vomiting decreased appetite constipation. Patient did not have any bowel movement during last three days. Denied chest pain shortness of breath fever or chills. Had hysterectomy due to endometriosis, Medication Reconciliation Allergies: Coded Allergies: hydrocodone (Verified Allergy, Intermediate, rash, itchy, 02/22/25) Penicillins (Verified Allergy, Unknown, 02/22/25) Last reaction within the last year. Describes as a rash requiring treatment. Sulfa (Sulfonamide Antibiotics) (Verified Allergy, Unknown, 02/22/25) clindamycin (Verified Allergy, Unknown, 02/22/25) morphine (Verified Allergy, Unknown, swelling, 02/22/25) Uncoded Allergies: PAPER TAPE (Allergy, Intermediate, RASH, 10/10/15) Scheduled Cetirizine HCl (Cetirizine HCl), 1 TAB PO DAILY, (Reported) Galcanezumab-Gnlm (Emgality), 1 ML SQ Q30D, (Reported) Lidocaine Hcl (Xylocaine Viscous), 5 ML PO Q2H PRN SORE THROAT Prazosin Hcl (Prazosin Hcl), 2 CAP PO HS, (Reported) Topiramate (Topamax), 2 TAB PO BID, (Reported) Trazodone HCl (Trazodone HCl), 1 TAB PO HS, (Reported) Scheduled PRN Albuterol (Albuterol), 2 PUFF PO Q4H PRN for SOB or wheezing, (Reported) Baclofen (Baclofen), 0.5-1 TAB PO TID PRN for muscle spasms, (Reported) Past Medical History Past Medical History: *ITEM PROCESSING CLERK*, Chronic Pain, MRSA Abscess, Depression Past Surgical History: hysterectomy, tubal ligation, other Other Past Surgical History: Brain surgery for Chiari malformation, ovarian cyst removal Alcohol Use: None Drug Use: marijuana Lives with: Family Lives In: Home Occupation: employed Review of Systems ROS Constitutional: No fever, dizziness, weakness. no change in appetite/weight HEENT: No blurring of the vision, No sore throat, epistaxis, tinnitus Cardiovascular: no chest pain/discomfort, palpitations, no syncope. No pedal edema Respiratory: No sob, cough,, hemoptysis Gastrointestinal: As HPI Genitourinary: No frquency, urgency, incontinence, nocturia. No dysuria, hematuria Musculoskeletal: No arthralgia, myalgia Endocrine: No polydipsia, polyuria. No heat or cold intolerance Neurologic: No headache, vertigo. No weakness, no numbness or tingling of extremities Psychiatric: No hallucinations/delusions, no anhedonia, no suicidal ideation Hematologic: No bleeding or bruises Physical Exam Vital Signs: RN Vital Signs have been reviewed: Yes, Temperature: 97.1, Source: Temporal, Heart Rate: 100, Respiratory Rate: 24, BP: 106/39, Pulse Oximetry: 100, Weight: 90.500 Oxygen Flow Rate: 0 Physical Exam General: Awake and Alert, mild acute distress. HEENT: Conjunctiva pink, Sclera clear, Mucus Membranes moist. Neck: Supple without masses and tenderness. Resp: Lungs clear to auscultation bilaterally. Heart: Regular Rate and rhythm, normal S1 and S2 Abdomen: Soft, tenderness on the left upper and lower quadrant Extremities: No cyanosis,clubbing or edema. Skin: Warm and Dry. Neurological: Speech is clear, alert, and oriented x 4, no gross neurological deficits General Appearance: alert, no apparent distress EENT: PERRL/EOMI Neck: normal inspection Respiratory: lungs clear Chest: no accessory muscle use Cardiovascular: normal peripheral pulses Gastrointestinal: normal palpation, bowels sounds present Gastrointestinal LUQ TTP + rebounding + BS No pulsatile or palpable masses. Rectal: deferred Back: normal inspection Extremities: normal range of motion Neurologic: oriented x4 Progress Results/Orders Results/Orders Vital Signs 02/22/25 11:17 Temp 97.1 Pulse 100 Resp 24 B/P (MAP) 106/39 Pulse Ox 100 O2 Flow Rate 0 Medical Decision Making Additional Comments 34 years old female with history of ADHD presented to the ED due to nausea vomiting her abdominal pain following Wegovy injection three days back. Patient is taking Wegovy for a long time, he missed three weeks and started again three days ago when the symptoms started. Differential diagnosis could be pancreatitis, GI bleeding, GI obstruction, perforated intestine. While here in the ED, she remained hemodynamically normal with ABC's intact and in NAD. She is afebrile but appears uncomfortable. Labs returned with a lactic acidosis of 4.2. IV fluid started. Cultures collected and sent to [facility] for analysis. She was started on Ceftriaxone and Flagyl. + leukocytosis. CT shows esophagitis and colitis. Nothing to suggest an acute perforation. Will continue IV fluid resuscitation and admit for ongoing management. Departure Disposition: ADMITTED INPATIENT Admitted to Inpatient Unit: yes, to hospitalist Impression: Primary Impression: Abdominal pain Additional Impressions: Colitis Esophagitis Referrals: NO PRIMARY CARE PROVIDER (PCP) Education Educated: Patient Educated regarding: diagnosis, treatment Signature Scribe Signature: Skye Waters MD Internal Medicine Resident Attestation: The resident MD attestation: I examined the patient and discussed the plan with attending physician Dr Bishop. Attending Attestation: I was present during the work-up and actively participated. I evaluated Ms. Fisher and agree with plan as outlined. Hussain Bishop M.D. SKYE WATERS, RES Feb 22, 2025 11:35 HUSSAIN BISHOP MD Feb 22, 2025 11:50
[2025-02-22 11:47] LABS: MEAN PLATELET VOLUME 7.4 FL (7.4-10.4); RED CELL DISTRIBUTION WIDTH 12.8 % (11.5-14.5)
[2025-02-22] MEDS: fentaNYL/PF 50MCG/1 ML 2ML syringe IV ONE (11:47)
[2025-02-22] MEDS: ondansetron/PF 4mg/2ml inj IV ONE ×2 (11:47→14:35)
[2025-02-22] MEDS: normal saline 1000ML IV soln IVB ONE (11:56)
[2025-02-22 12:01] LABS: CREATININE 1.58 MG/DL (0.40-0.90); TOTAL CARBON DIOXIDE 22.3 MMOL/L (24-32); eCRCL 43 ML/MIN; eGFR 37 ML/MIN
[2025-02-22 12:24] LABS: HCG SERUM QL NEGATIVE
[2025-02-22] MEDS ORDERED: iohexol 300mg/ml 100ml inj. ONE (12:53)
[2025-02-22] MEDS: normal saline 1000ml 1,000 ML IV ONE ×2 (13:12→13:53)
[2025-02-22] MEDS: CefTRIAXone 2gm/D5W 50ml BAG 50 ML IV SCH (13:12)
[2025-02-22 13:18] LABS: LEUKOCYTE ESTERASE ,URINE NEGATIVE (Neg); NITRITES, URINE NEGATIVE (Neg); OCCULT BLOOD,URINE NEGATIVE (Neg)
--- NOTE | 2025-02-22 13:23 | RADIOLOGY REPORT ---
CLINICAL HISTORY: Dissuse ABD pain TECHNIQUE: CT of the abdomen and pelvis was performed with IV contrast. This exam was performed according to our departmental dose optimization program. Up-to-date CT equipment and radiation dose reduction techniques are utilized as appropriate. CTDI 28.8 DLP 1352 COMPARISON: CT ABDOMEN PELVIS on DOS: 10/29/21 FINDINGS: Abdomen/Pelvis: The spleen, pancreas, adrenal glands, kidneys, gallbladder, liver, and bladder are unremarkable. The uterus is absent. The abdominal aorta is normal in course and caliber. There are no significant atherosclerotic calcifications. There is no free intraperitoneal air or fluid. There is no enlarged abdominal or pelvic lymph node. There is no small bowel wall thickening or dilatation. The appendix is normal. There is mild and moderate scattered colonic wall thickening. Other: The imaged lower thorax demonstrates moderate distal esophageal wall thickening with mural edema. No acute osseous abnormality is evident. IMPRESSION: Mild and moderate scattered colonic wall thickening, favor colitis over underdistention. Moderate distal esophageal wall thickening with mural edema, favor esophagitis. Please correlate for history of recent emesis.
[2025-02-22 13:30] LABS: UA COLLECTION TYPE CLN CATCH MIDSTREAM
[2025-02-22] MEDS: metroNIDAZOLE-Flagyl 500mg/NS 100 ML IV SCH ×2 (13:52→20:04)
[2025-02-22 14:16] LABS: SQUAMOUS EPITHELIAL CELL,UR MANY /LPF (FEW)
[2025-02-22 14:24] LABS: HYALINE CASTS >30 /LPF (NEGATIVE)
[2025-02-22] MEDS ORDERED: mag hydrox/Alum hydrox/simeth 30ml oral suspension PO PRN (14:55)
[2025-02-22] MEDS ORDERED: potassium Cl 40MEQ/1/2NS 520ml 520 ML IV PRN (14:55)
[2025-02-22] MEDS ORDERED: potassium Cl 20 mEq SR tablet PO PRN ×2 (14:55)
[2025-02-22] MEDS ORDERED: magnesium Cl slow-release 64mg tablet PO PRN (14:55)
[2025-02-22] MEDS ORDERED: magnesium sulf-water 2g/50mL 50 ML IV PRN (14:55)
[2025-02-22] MEDS ORDERED: magnesium sulf-water 4G/100mL 100 ML IV PRN (14:55)
[2025-02-22] MEDS ORDERED: ondansetron 4mg rapidly disintigrating tab PO PRN (14:55)
[2025-02-22] MEDS ORDERED: HYDROmorphone 1mg tablet (1/2 of 2mg tablet) PO PRN (15:40)
[2025-02-22] MEDS: normal saline 1000ml 1,000 ML IV SCH (15:51)
[2025-02-22] MEDS ORDERED: SPIR100T5 PO (16:25)
[2025-02-22] MEDS ORDERED: METH-1026 CORPAK (16:25)
[2025-02-22] MEDS ORDERED: AMPH30TA3 PO (16:25)
[2025-02-22] MEDS ORDERED: GABA-1405 PO (16:25)
[2025-02-22] MEDS: ondansetron/PF 4mg/2ml inj IV PRN (19:25)
[2025-02-22] MEDS: pantoprazole 40mg Tablet.DR PO SCH (20:04)
[2025-02-22] MEDS: heparin, porcine 5000 units/ml vial SQ SCH (20:07)
--- NOTE | 2025-02-22 20:49 | HISTORY AND PHYSICAL ---
History & Physical Providers to CC ~ History of Present Illness Reason for Admit\Complaint: Abdominal Pain History of Present Illness 34 years old female with history of ADHD presented to the ED due to nausea vomiting her abdominal pain following Wegovy injection three days back. As per patient pain is over left lower quadrant more as compared to the rest of the abdomen since last three days. She has vomiting multiple times straight since last three days. Unable to tell me if she noticed any fever or not. She started crying and not cooperative during exam. She did mentioned to me that morphine causes itching and hives but she is willing to try some other pain medication. Patient also told me that she can not walk because her foot ligament is messed up and she has appointment with specialist but unable to tell me the name of the doctor. She showed me signs of mood swings and lot of temper tantrums and was not able to get any further history from her. All ER records, labs and diagnostic testing reviewed. Allergies: Coded Allergies: hydrocodone (Verified Allergy, Intermediate, rash, itchy, 02/22/25) Penicillins (Verified Allergy, Unknown, 02/22/25) Last reaction within the last year. Describes as a rash requiring treatment. Sulfa (Sulfonamide Antibiotics) (Verified Allergy, Unknown, 02/22/25) clindamycin (Verified Allergy, Unknown, 02/22/25) morphine (Verified Allergy, Unknown, swelling, 02/22/25) Uncoded Allergies: PAPER TAPE (Allergy, Intermediate, RASH, 10/10/15) Home Medications Home Medications Active Xylocaine Viscous (Lidocaine HCl) 20 Ml Solution 5 Ml PO Q2H PRN SORE THROAT Reported Adderall 30 mg Tablet (Dextroamphetamine/Amphetamine) 30 Mg Tablet 1 Tab PO DAILY 30 Days Gabapentin 600 Mg Tablet 1 Tab PO Q8H 30 Days methimazole tablet (Methimazole) 5 Mg Tablet 5 Mg CORPAK DAILY Spironolactone 100 Mg Tablet 1 Tab PO BID 30 Days Albuterol 17 Gm Aerosol 2 Puff PO Q4H PRN Cetirizine HCl 10 Mg Tablet 1 Tab PO DAILY Emgality (Galcanezumab-Gnlm) 120 Mg/1 Ml Pen.injctr 1 Ml SQ Q30D Topamax (Topiramate) 100 Mg Tablet 2 Tab PO BID Baclofen 10 Mg Tablet 0.5-1 Tab PO TID PRN Prazosin Hcl 1 Mg Capsule 2 Cap PO HS Trazodone HCl 100 Mg Tablet 1 Tab PO HS Past Medical History Past Medical History MAINTENANCE ASSOCIATE*, Chronic Pain, MRSA Abscess, Depression Past Surgical History Surgical History Comment hysterectomy, tubal ligation, otherBrain surgery for Chiari malformation, ovarian cyst removal Past Social History Social History Comment Patient lives with her teenage son WAYNE BLACK Limited review of system as patient was not very cooperative and did not give me details about medical history Exam Vitals: Vital Signs Date Time Temp Pulse Resp B/P (MAP) Pulse Ox O2 Delivery O2 Flow Rate FiO2 02/22/25 19:50 02/22/25 19:42 97.8 80 16 99 0 General: General-patient not in any acute distress, alert awake oriented, chronically ill-appearing, signs of mood swings noticed HEENT-atraumatic normocephalic, neck supple without elevated JVD, no thyromegaly or carotid bruit. No lymphadenopathy bilaterally. Eyes-no icterus or pallor seen in eyes Chest-clear to auscultation bilaterally, breathing nonlabored no tachypnea, no wheezing, no crepitation, no crackles. Heart-S1-S2 normal, regular heart rate no murmur Abdomen bowel sounds positive on auscultation, soft nondistended, subjective tenderness present all over the abdomen, no signs of acute peritonitis, no guarding, no rigidity Skin no active skin rash/signs of chronic hyperpigmentation present over lower extremity Neurology-grossly intact, nonfocal alert awake oriented Extremity- no pedal edema able to move all 4 extremities Psychiatry - patient is not confused or agitated , barely cooperated during physical examination, signs of mood swings noticed Diagnostic Data Last Recorded Lab Results: 02/22/25 1138 02/22/25 1138 Diagnostic Data: Patient was admitted for acute colitis in acute esophagitis based on her CT scan results and labs. Started on IV antibiotic fluids pain medication started for pain control. We will continue to monitor patient's labs and vitals closely . Needs physical therapy evaluation before discharge . Patient is full code by default. We will do home medication reconciliation once updated in electronic by nursing staff or pharmacist. Further management depending on response to treatment . I will continue to follow patient in a.m. Date of Service: Feb 22, 2025 Billing Provider: ARY TYLER MD Common Visit Codes: 32598-TKXOCFL INP/OBS CARE (HIGH) ARY TYLER MD Feb 22, 2025 20:49
[2025-02-22 22:00] VITALS: BP 112/70; PULSE 71; RESP 15; TEMP 97.8; O2SAT 99
[2025-02-23 05:28] LABS: MEAN PLATELET VOLUME 7.5 FL (7.4-10.4); RED CELL DISTRIBUTION WIDTH 13.0 % (11.5-14.5)
[2025-02-23 05:57] LABS: CREATININE 0.77 MG/DL (0.40-0.90); TOTAL CARBON DIOXIDE 24.4 MMOL/L (24-32); eCRCL 87 ML/MIN; eGFR 85 ML/MIN
[2025-02-23 06:00] VITALS: BP 136/67; PULSE 89; RESP 19; TEMP 98.1; O2SAT 97
[2025-02-23 07:50] VITALS: RESP 19; O2SAT 97
[2025-02-23] MEDS: ciprofloxacin lact 400MG/200ML 200 ML IV SCH (08:18)
[2025-02-23 08:30] VITALS: RESP 16
[2025-02-23 10:30] VITALS: BP 103/61; PULSE 82; RESP 16; TEMP 97.2; O2SAT 97
[2025-02-23] MEDS ORDERED: METR-159 PO (11:37)
[2025-02-23] MEDS ORDERED: CIPR-458 PO (11:37)
--- NOTE | 2025-02-23 17:40 | DISCHARGE SUMMARY ---
Discharge Summary Providers to CC ~ Discharge Summary Admission Diagnosis: Acute colitis, esophagitis, acute kidney injury Hospital Course DATE OF ADMISSION: 02/22/2025 DATE OF DISCHARGE: 02/23/2025 Discharge Diagnosis\\Comment: TRAVIS, colitis, depression Operations\\Procedures: None Consultants: None Complications: None Condition on DC: Stable New Medications: Ciprofloxacin HCl (Ciprofloxacin HCl) 500 Mg Tab 1 TAB PO BID, #14 TAB Metronidazole* (Flagyl*) 500 Mg Tablet 1 TAB PO Q8H for 7 Days, #21 TAB Continued Medications: Albuterol (Albuterol) 17 Gm Aerosol 2 PUFF PO Q4H PRN for SOB or wheezing Baclofen (Baclofen) 10 Mg Tablet 0.5-1 TAB PO TID PRN for muscle spasms Cetirizine HCl (Cetirizine HCl) 10 Mg Tablet 1 TAB PO DAILY Dextroamphetamine/Amphetamine (Adderall 30 mg Tablet) 30 Mg Tablet 1 TAB PO DAILY for 30 Days, #30 TAB 0 Refills Gabapentin (Gabapentin) 600 Mg Tablet 1 TAB PO Q8H for 30 Days, #90 TAB 0 Refills Galcanezumab-Gnlm (Emgality) 120 Mg/1 Ml Pen.injctr 1 ML SQ Q30D Lidocaine Hcl (Xylocaine Viscous) 20 Ml Solution 5 ML PO Q2H PRN SORE THROAT, #100 ML Methimazole (methimazole tablet) 5 Mg Tablet 5 MG CORPAK DAILY, TAB Prazosin Hcl (Prazosin Hcl) 1 Mg Capsule 2 CAP PO HS Spironolactone (Spironolactone) 100 Mg Tablet 1 TAB PO BID for 30 Days, #30 TAB 0 Refills Topiramate (Topamax) 100 Mg Tablet 2 TAB PO BID Trazodone HCl (Trazodone HCl) 100 Mg Tablet 1 TAB PO HS Discharge Summary: The patient was admitted by Dr. Ashlyn Parrish with the following HPI:"34 years old female with history of ADHD presented to the ED due to nausea vomiting her abdominal pain following Wegovy injection three days back. As per patient pain is over left lower quadrant more as compared to the rest of the abdomen since last three days. She has vomiting multiple times straight since last three days. Unable to tell me if she noticed any fever or not. She started crying and not cooperative during exam. She did mentioned to me that morphine causes itching and hives but she is willing to try some other pain medication. Patient also told me that she can not walk because her foot ligament is messed up and she has appointment with specialist but unable to tell me the name of the doctor. She showed me signs of mood swings and lot of temper tantrums and was not able to get any further history from her. All ER records, labs and diagnostic testing reviewed." The patient is white blood [place] [id number] and lactic acid also improved from 4.1-3.1 the patient is afebrile and felt significantly improved the following morning of the and was requesting to be discharged and the patient was stable that I felt the patient to be discharged on oral antibiotics the patient is discharged on seven day script of ciprofloxacin and metronidazole with recommendations to take a probiotic to avoid antibiotic induced colitis (Clostridium difficile enterocolitis). The patient has a TRAVIS with a serum creatinine of 1.58 on admission and improved to 0.77 on the day of discharge her acute TRAVIS has possibly secondary to mild ATN due to dehydration. Gen. No acute distress alert and oriented 4 Lungs clear to ascultation bilaterally, no wheezes rales or rhonchi appreciated Heart normal sinus rhythm no murmurs rubs or clicks noted Abdomen soft nontender bowel sounds are normoactive Lower extremities no clubbing cyanosis, nor edema appreciated bilaterally The patient felt ready to be discharged and was medically cleared to be discharged on 02/23/2025 The patient was seen and evaluated on day of discharge. Time spent on discharge 35 minutes The patient recovered sooner than to be expected with colitis with significant leukocytosis. *Problems/Diagnosis: (1) Colitis Status: Acute Total Time Spent on D/C: > 30 Minutes Date of Service: Feb 23, 2025 Billing Provider: SHWETA BARAHONA DO Common Visit Codes: 50541-QDC/OBS DISCH DAY >30min SHWETA BARAHONA DO Feb 23, 2025 17:40
== END 2025-02-23 12:45 | disposition home or self-care (01) | DRG 391 ==
LOC: ER 11:13 → ED HOLD 14:57 → ORTHO 4S 19:50
PROVIDERS: ADMIT Internal Medicine; ATTEND Internal Medicine
PROC: BW211ZZ Computerized Tomography (CT Scan) of Abdomen and Pelvis using Low Osmolar Contrast (ICD-10-PCS; principal; 2025-02-22)
DX: K52.9 Noninfective gastroenteritis and colitis, unspecified (principal); N17.0 Acute kidney failure with tubular necrosis; K20.90 Esophagitis, unspecified without bleeding; F90.8 Attention-deficit hyperactivity disorder, other type; E86.0 Dehydration; Z88.5 Allergy status to narcotic agent; Z88.0 Allergy status to penicillin; Z88.1 Allergy status to other antibiotic agents; Z88.2 Allergy status to sulfonamides; Z90.710 Acquired absence of both cervix and uterus
CPT/HCPCS: 36415; 74177; 80048; 80053; 80076; 81001; 83605; 83690; 83735; 84703; 85025; 87040; 87081; 96365; 96375; 99285; G0378; J0696; J0744; J0780; J1171; J1644; J2405; J3010; J3490; J7030; Q9967